=== PATIENT | female | born 1980 | race Caucasian/White ===

== ENCOUNTER 2017-04-18 14:04 | Emergency (ER) | payer MEDICAID ==
[~2017-04-18] VITALS: Ht 149.9 cm; Wt 66.0 kg
[~2017-04-18 14:04] MED LIST: PREN1TAB49
[2017-04-18 14:22] VITALS: Ht 149.9 cm; Wt 66.0 kg
--- NOTE | 2017-04-18 16:34 | RADRPT ---
PROCEDURE: XR Cervical Spine. CLINICAL INDICATION: Trauma TECHNIQUE: Three views of the cervical spine were performed. The images were reviewed on a PACS [place]. COMPARISON: None. FINDINGS: The vertebral body alignment, height and osseous mineralization are normal. There is reversal normal cervical lordosis. There is no facet arthropathy. The uncovertebral joints are unremarkable. The i ntervertebral disc spaces are well maintained. There are no abnormal calcifications. The prevertebra l soft tissues are normal. No radiopaque foreign bodies are identified. IMPRESSION: 1. Reversal of the normal cervical lordosis related to paraspinal muscle spasm or position. 2. No radiographic evidence for fracture or traumatic subluxation. RPTAT: HH .Gurinder Franklin MD, Date Time Electronically viewed and signed by .Gurinder Franklin MD, on 04/18/2017 16:34 .d/
--- NOTE | 2017-04-18 16:34 | RADRPT ---
PROCEDURE: XR right shoulder. CLINICAL INDICATION: Pain TECHNIQUE: AP Internal and external rotation views and scapular Y view of the right shoulder were performed. COMPARISON: None FINDINGS: Osseous structures: Normal mineralization. No evidence of fracture or dislocation. Joint spaces: Normal Soft tissues: No significant soft tissue swelling. IMPRESSION: No evidence of fracture or dislocation. RPTAT:AAJJ Physician Sofia Date Time Electronically viewed and signed by Ja Craig Physician on 04/18/2017 16:34 /
[2017-04-18] MEDS ORDERED: MED4DP PO (16:41)
[2017-04-18] MEDS ORDERED: NAPR-260 PO (16:41)
--- NOTE | 2017-04-18 18:08 | ERD ---
ER Documentation Chief Complaint Chief Complaint both arm pain x 4 days HPI 37-year-old female complaining of neck pain and bilateral arm pain 4 days. Patient states she has taken Advil for symptoms with no alleviation. Denies any weakness to her extremities. Denies any recent traumatic injuries. Describes pain as a dull aching type pain radiating from her neck. Denies any chest pains or shortness of breath. Denies any dizziness or loss of consciousness. Denies rashes. ROS All systems reviewed and are negative except as per history of present illness. Medications Home Meds Active Scripts Naproxen* (Naprosyn*) 500 Mg Tablet, 500 MG PO BID Y for PAIN AND/OR INFLAMMATION, #30 TAB Prov:NANCY ZIEGLER PA-C 04/18/17 Methylprednisolone* (Medrol* DOSE PACK) 4 Mg/Dose-Pack Tab.ds.pk, 4 MG PO . DIRECTED, #1 PACKET Prov:NANCY ZIEGLER PA-C 04/18/17 Reported Medications Vits W-Ca,Fe,Fa(<1MG) () 1 Tab Tablet 01/01/10 Allergies Allergies: Coded Allergies: No Known Allergies (Verified Allergy, Mild, 01/01/10) PMhx/Soc History of Surgery: No Anesthesia Reaction: No Hx Neurological Disorder: No Hx Respiratory Disorders: No Hx Cardiac Disorders: No Hx Psychiatric Problems: No Hx Miscellaneous Medical Probl: No Hx Alcohol Use: No Hx Substance Use: No Hx Tobacco Use: No Smoking Status: Never smoker Physical Exam Vitals Vital Signs Date Time Temp Pulse Resp B/P Pulse Ox O2 Delivery O2 Flow Rate FiO2 04/18/17 14:22 98.6 70 19 128/62 99 Physical Exam GENERAL: The patient is well-appearing, well-nourished, in no acute distress NECK: C-spine is soft and supple. No tenderness to palpation over bilateral trapezius. CHEST: Clear to auscultation bilaterally. There are no rales, wheezes or rhonchi. HEART: Regular rate and rhythm. No murmurs, clicks, rubs or gallops. No S3 or S4. BACK: No midline or flank tenderness. EXTREMITIES: Equal pulses bilaterally. There is no peripheral clubbing, cyanosis or edema. No focal swelling or erythema. Full range of motion. Grossly neurovascularly intact. NEUROLOGIC: Alert and oriented. Cranial nerves II through XII intact. Motor strength in all 4 extremities with 5 out of 5 strength. Sensation grossly intact. Normal speech and gait. Babinski negative. DTR 2+ throughout. SKIN: There is no apparent rash or petechiae. The skin is warm and dry. Procedures/MDM DIAGNOSTIC IMAGING REPORT Patient: DENISE RODRIGUEZ : 1980 Age: 37 Sex: F MR #: [id number] DOS: 04/18/17 1620 Ordering MD: PRAMOD ZIEGLER PA-C Location: [facility] Room/Bed: PROCEDURE: XR right shoulder. CLINICAL INDICATION: Pain TECHNIQUE: AP Internal and external rotation views and scapular Y view of the right shoulder were performed. COMPARISON: None FINDINGS: Osseous structures: Normal mineralization. No evidence of fracture or dislocation. Joint spaces: Normal Soft tissues: No significant soft tissue swelling. IMPRESSION: No evidence of fracture or dislocation. DIAGNOSTIC IMAGING REPORT Patient: DENISE RODRIGUEZ : 1980 Age: 37 Sex: F MR #: [id number] DOS: 04/18/17 1504 Ordering MD: PRAMOD ZIEGLER PA-C Location: [facility] Room/Bed: PROCEDURE: XR Cervical Spine. CLINICAL INDICATION: Trauma TECHNIQUE: Three views of the cervical spine were performed. The images were reviewed on a PACS workstation. COMPARISON: None. FINDINGS: The vertebral body alignment, height and osseous mineralization are normal. There is reversal normal cervical lordosis. There is no facet arthropathy. The uncovertebral joints are unremarkable. The intervertebral disc spaces are well maintained. There are no abnormal calcifications. The prevertebral soft tissues are normal. No radiopaque foreign bodies are identified. IMPRESSION: 1. Reversal of the normal cervical lordosis related to paraspinal muscle spasm or position. 2. No radiographic evidence for fracture or traumatic subluxation. MDM: 7-year-old female complaining of bilateral shoulder pain. I have low suspicion for acute fracture dislocation. I believe patient's pain is likely associated with muscle spasms and nerve impingements. Patient will be given medication to alleviate symptoms. A low suspicion for infectious etiology. I have low suspicion for neuro deficits. She was discharged with medication told to follow-up with primary care within 1-2 days for close evaluation. Patient is told symptoms change or worsen to return to the ER. All questions answered at discharge. Departure Diagnosis: Primary Impression: Cervical radiculopathy Condition: Stable Patient Instructions: Radiculopathy, Cervical Referrals: COMM[facility] CL[facility] YOU HAVE RECEIVED A MEDICAL SCREENING EXAM AND THE RESULTS INDICATE THAT YOU DO NOT HAVE A CONDITION THAT REQUIRES URGENT TREATMENT IN THE EMERGENCY DEPARTMENT. FURTHER EVALUATION AND TREATMENT OF YOUR CONDITION CAN WAIT UNTIL YOU ARE SEEN IN YOUR DOCTORS OFFICE WITHIN THE NEXT 1-2 DAYS. IT IS YOUR RESPONSIBILITY TO MAKE AN APPOINTMENT FOR FOLOW-UP CARE. IF YOU HAVE A PRIMARY DOCTOR --you should call your primary doctor and schedule an appointment IF YOU DO NOT HAVE A PRIMARY DOCTOR YOU CAN CALL OUR PHYSICIAN REFERRAL HOTLINE AT IF YOU CAN NOT AFFORD TO SEE A PHYSICIAN YOU CAN CHOSE FROM THE FOLLOWING FORMERLY [facility] [address] [facility] [facility] [address] [facility] [facility] [address] [facility] [address] [facility] [address] [facility] [address] [facility] [address] Additional Instructions: FOLLOW UP WITH YOUR PRIMARY CARE PHYSICIAN TOMORROW.Return to this facility if you are not improving as expected. NANCY ZIEGLER PA-C Apr 18, 2017 18:08
== END 2017-04-18 16:50 | disposition home or self-care (01) ==
LOC: FTE 14:04
DX: M54.12 Radiculopathy, cervical region (principal)
CPT/HCPCS: 72040; 73030; Z7502